=== PATIENT | male | born 1990 | race Two or more races ===

== ENCOUNTER 2018-07-06 18:09 | Emergency (ER) | payer SELFPAY ==
[~2018-07-06] VITALS: Ht 190.5 cm; Wt 127.0 kg
[~2018-07-06 18:09] MED LIST: NORPTMEDS CO
[2018-07-06 18:17] VITALS: BP 137/99
== END 2018-07-06 20:05 ==
LOC: ER 18:16
DX: M54.2 Cervicalgia (principal); F12.10 Cannabis abuse, uncomplicated; Z02.89 Encounter for other administrative examinations
CPT/HCPCS: 72040

== ENCOUNTER 2022-03-03 13:20 | Emergency (ER) | payer SELFPAY ==
[~2022-03-03] VITALS: Ht 190.5 cm; Wt 136.1 kg
[2022-03-03 13:23] VITALS: BP 146/94
== END 2022-03-03 16:58 | disposition left against medical advice (07) ==
LOC: ER 13:20
DX: H57.12 Ocular pain, left eye (principal); Z53.21 Procedure and treatment not carried out due to patient leaving prior to being seen by health care provider

== ENCOUNTER 2024-03-09 17:21 | Emergency (ER) | payer OTHER ==
[~2024-03-09] VITALS: Ht 190.5 cm; Wt 142.3 kg
[2024-03-09 18:21] VITALS: BP 132/88; PULSE 88; RESP 16; TEMP 98; O2SAT 98
[2024-03-09] MEDS ORDERED: CEPH500C PO (18:26)
== END 2024-03-09 18:35 | disposition home or self-care (01) ==
LOC: ER 17:28
DX: S90.561A Insect bite (nonvenomous), right ankle, initial encounter (principal); F12.10 Cannabis abuse, uncomplicated; W57.XXXA Bitten or stung by nonvenomous insect and other nonvenomous arthropods, initial encounter; Y93.89 Activity, other specified; Y92.89 Other specified places as the place of occurrence of the external cause; Y99.8 Other external cause status